=== PATIENT | male | born 1995 | race African-American/Black ===

== ENCOUNTER 2021-08-02 09:52 | Emergency (ER) | payer SELFPAY ==
[2021-08-02 10:09] VITALS: BP 159/96; PULSE 66; RESP 16; TEMP 36.4; O2SAT 99
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
[2021-08-02] MEDS: TETANUS,DIPHTHERIA,AC PERTUSSIS ADULT (0.5 ML) BOOSTRIX IM (11:01)
== END 2021-08-02 11:28 | disposition home or self-care (01) ==
PROVIDERS: Emergency Provider Nurse Practitioner Family
DX: S61.216A Laceration without foreign body of right little finger without damage to nail, initial encounter (principal); W45.8XXA Other foreign body or object entering through skin, initial encounter; Z23 Encounter for immunization; J45.909 Unspecified asthma, uncomplicated
CPT/HCPCS: 90471; 90715; 99203; G0463